=== PATIENT | male | born 1965 ===

== ENCOUNTER 2018-01-10 00:13 | Emergency (ER) | payer OTHER ==
[2018-01-10] MEDS ORDERED: NA CHLORIDE 0.9% 1,000 ML ONE (01:18)
[2018-01-10 02:06] LABS: Absolute Lymphocytes (CBC) 1.1 K/uL (0.7-4.9); Absolute Monocytes 0.5 K/uL (0.1-1.3); Eosinophils % 16.4 % (0-4.4); Hematocrit 40.4 % (39.6-49.0); Lymphocytes % 15.8 % (15.3-44.8); MCH 27.8 pg (27.0-35.0); MCV 85.7 fL (80-100); Monocytes % 7.2 % (3.3-12.3); RBC Red Blood Cell Count 4.71 M/uL (4.33-5.43)
[2018-01-10 02:17] LABS: Protime INR 1.03
[2018-01-10 02:20] LABS: Bicarbonate 29 mEq/L (21-31); Glucose Level 81 mg/dL (65-120); Potassium 4.1 mEq/L (3.6-5.0); Sodium Level 139 mEq/L (135-145)
[2018-01-10 02:26] LABS: ALT/SGPT 17 IU/L (10-60); AST/SGOT 24 IU/L (10-42); Albumin 3.9 g/dL (3.2-5.5); Alkaline Phosphatase 57 IU/L (42-121); BUN Blood Urea Nitrogen 19 mg/dL (6-20); Bilirubin Direct < 0.1 mg/dL (0-0.2); Bilirubin Total 0.6 mg/dL (0.3-1.2); CKMB Creatine Kinase MB 3.1 ng/ml (0.3-4.0); Creatine Phosphokinase 141 IU/L (22-269); Protein, Total 6.6 g/dL (6.0-8.3)
--- NOTE | 2018-01-10 03:00 | ER ---
Nurse's Notes [facility] Name: Hari Triplett Age: 52 yrs Sex: Male : 1965 Arrival Date: 01/10/2018 Time: 00:25 Bed 19 Private MD: Gustavo Moise R Diagnosis: Other chest pain-wall;Pleurisy Presentation: 01/10 00:41 Presenting complaint: Patient states: that he is having sharp pain and burning feeling fc to left breast next to nipple. Denies any shortness of breath, nausea or vomiting. Transition of care: patient was not received from another setting of care. Onset of symptoms was January 09, 2018 at 21:30. Initial Sepsis Screen: Does the patient meet any 2 criteria? No. Patient's initial sepsis screen is negative. Does the patient have a suspected source of infection? No. Patient's initial sepsis screen is negative. Care prior to arrival: None. 00:41 Method Of Arrival: Ambulatory fc 00:41 Acuity: SHELLI 4 fc Historical: - Allergies: 00:44 Codeine; fc 00:44 Aspirin; fc - Home Meds: 00:44 None [Active]; fc - PMHx: 00:44 G6PD deff.; hypoglycemia; High Cholesterol; fc - PSHx: 00:44 None; fc - Immunization history:: Last tetanus immunization: unknown. - Social history:: Smoking status: Patient/guardian denies using tobacco, Patient/guardian denies using alcohol. - Family history:: not pertinent. Screenin:39 Abuse screen: Denies threats or abuse. Denies injuries from another. Nutritional lk1 screening: No deficits noted. Tuberculosis screening: No symptoms or risk factors identified. Fall Risk None identified. Assessment: 01:15 General: Appears in no apparent distress. Behavior is calm, cooperative, appropriate lk1 for age. Pain: Complains of pain in left breast Pain currently is 3 out of 10 on a pain scale. Quality of pain is described as sharp. Neuro: Level of Consciousness is awake, alert, obeys commands, Oriented to person, place, time, situation. Neuro: Moves all extremities. Full function Gait is steady, Speech is normal, Facial symmetry appears normal. Cardiovascular: Heart tones S1 S2 present Capillary refill is brisk Patient's skin is warm and dry. Respiratory: Airway is patent Respiratory effort is even, unlabored, Respiratory pattern is regular, symmetrical, Breath sounds are clear bilaterally. GI: Abdomen is flat, non-distended. : No signs and/or symptoms were reported regarding the genitourinary system. EENT: No signs and/or symptoms were reported regarding the EENT system. Derm: No signs and/or symptoms reported regarding the dermatologic system. Musculoskeletal: No signs and/or symptoms reported regarding the musculoskeletal system. 02:15 Reassessment: Patient appears in no apparent distress at this time. Patient is alert, lp1 oriented x 3, equal unlabored respirations, skin warm/dry/pink. Patient denies pain at this time. Patient states feeling better. 03:18 Reassessment: Patient and/or family updated on plan of care and expected duration. Pain lp1 level reassessed. Patient is alert, oriented x 3, equal unlabored respirations, skin warm/dry/pink. Patient denies pain at this time. Vital Signs: 00:44 BP 110 / 72; Pulse 60; Resp 16; Temp 98.7(TE); Pulse Ox 98% on R/A; Weight 58.97 kg fc (R); Height 5 ft. 6 in. (167.64 cm) (R); Pain 3/10; 01:45 BP 134 / 87; Pulse 60; Resp 14; Pulse Ox 100% on R/A; Pain 0/10; lk1 02:30 BP 125 / 74; Pulse 60; Resp 18; Pulse Ox 100% on R/A; Pain 0/10; lp1 03:00 BP 119 / 70; Pulse 59; Resp 17; Pulse Ox 98% on R/A; Pain 0/10; lp1 00:44 Body Mass Index 20.98 (58.97 kg, 167.64 cm) ED Course: 00:25 Patient arrived in ED. do 00:42 Triage completed. fc 00:44 Gustavo Moise MD is Private Physician. fc 00:44 Arm band placed on Patient placed in an exam room, on a stretcher. fc 00:58 Oli Lu MD is Attending Physician. libia 01:14 Annabel Guzmán, LETY is Primary Nurse. lk1 01:19 Patient moved to radiology via wheelchair. kw 01:19 X-ray completed. Patient tolerated procedure well. kw 01:19 Patient moved back from radiology. kw 01:20 Chest Pa And Lat (2 Views) XRAY In Process Unspecified. EDMS 01:39 Patient has correct armband on for positive identification. Placed in gown. Bed in low lk1 position. Call light in reach. 01:39 Inserted saline lock: 22 gauge in right antecubital area, using aseptic technique. lk1 Blood collected. 03:00 Gustavo Moise MD is Referral Physician. libia 03:18 No provider procedures requiring assistance completed. IV discontinued, No lp1 redness/swelling at site. Pressure dressing applied. Administered Medications: 01:26 Drug: NS 0.9% 1000 ml Route: IV; Rate: 1 bolus; Site: right antecubital; lk1 02:30 Follow up: IV Status: Completed infusion; IV Intake: 1000ml lp1 Intake: 02:30 IV: 1000ml; Total: 1000ml. lp1 Outcome: 03:00 Discharge ordered by . libia 03:19 Discharged to home ambulatory. lp1 03:19 Condition: good 03:19 Discharge instructions given to patient, Instructed on discharge instructions, follow up and referral plans. Demonstrated understanding of instructions, follow-up care. 03:24 Patient left the ED. lp1 Signatures: Dispatcher [employer] EDOli Mendoza MD MD cha Chretien, Felicia, RN RN Seema Pereira Laura, RN RN lp1 Annabel Guzmán RN RN lk1 Venus Whitley do
--- NOTE | 2018-01-10 03:00 | EDPHYS ---
Physician Documentation [facility] Name: Hari Triplett Age: 52 yrs Sex: Male : 1965 Arrival Date: 01/10/2018 Time: 00:25 Bed 19 Private MD: Gustavo Moise R ED Physician Oli Lu HPI: 01/10 01:04 This 52 yrs old Unknown Male presents to ER via Ambulatory with complaints of L Breast libia Pain. 01:04 The patient or guardian reports chest pain that is located primarily in the anterior libia chest wall, left. Onset: just prior to arrival. The pain does not radiate. Associated signs and symptoms: The patient has no apparent associated signs or symptoms. The chest pain is described as sharp. Modifying factors: The symptoms are alleviated by nothing. the symptoms are aggravated by nothing. Severity of pain: At its worst the pain was mild moderate in the emergency department the pain has improved moderately. The patient has not experienced similar symptoms in the past. Historical: - Allergies: 00:44 Codeine; fc 00:44 Aspirin; fc - Home Meds: 00:44 None [Active]; fc - PMHx: 00:44 G6PD deff.; hypoglycemia; High Cholesterol; fc - PSHx: 00:44 None; fc - Immunization history:: Last tetanus immunization: unknown. - Social history:: Smoking status: Patient/guardian denies using tobacco, Patient/guardian denies using alcohol. - Family history:: not pertinent. ROS: 01:04 Constitutional: Negative for fever, chills, and weight loss, Eyes: Negative for injury, libia pain, redness, and discharge, ENT: Negative for injury, pain, and discharge, Neck: Negative for injury, pain, and swelling, Respiratory: Negative for shortness of breath, cough, wheezing, and pleuritic chest pain, Abdomen/GI: Negative for abdominal pain, nausea, vomiting, diarrhea, and constipation, Back: Negative for injury and pain, : Negative for injury, bleeding, discharge, and swelling, MS/Extremity: Negative for injury and deformity, Skin: Negative for injury, rash, and discoloration, Neuro: Negative for headache, weakness, numbness, tingling, and seizure, Psych: Negative for depression, anxiety, suicide ideation, homicidal ideation, and hallucinations, Allergy/Immunology: Negative for hives, rash, and allergies, Endocrine: Negative for neck swelling, polydipsia, polyuria, polyphagia, and marked weight changes, Hematologic/Lymphatic: Negative for swollen nodes, abnormal bleeding, and unusual bruising. :04 Cardiovascular: Positive for chest pain, of the left breast. Exam: :04 Constitutional: This is a well developed, well nourished patient who is awake, alert, libia and in no acute distress. Head/Face: Normocephalic, atraumatic. Eyes: Pupils equal round and reactive to light, extra-ocular motions intact. Lids and lashes normal. Conjunctiva and sclera are non-icteric and not injected. Cornea within normal limits. Periorbital areas with no swelling, redness, or edema. ENT: Nares patent. No nasal discharge, no septal abnormalities noted. Tympanic membranes are normal and external auditory canals are clear. Oropharynx with no redness, swelling, or masses, exudates, or evidence of obstruction, uvula midline. Mucous membranes moist. Neck: Trachea midline, no thyromegaly or masses palpated, and no cervical lymphadenopathy. Supple, full range of motion without nuchal rigidity, or vertebral point tenderness. No Meningismus. Chest/axilla: Normal chest wall appearance and motion. Nontender with no deformity. No lesions are appreciated. Cardiovascular: Regular rate and rhythm with a normal S1 and S2. No gallops, murmurs, or rubs. Normal PMI, no JVD. No pulse deficits. Respiratory: Lungs have equal breath sounds bilaterally, clear to auscultation and percussion. No rales, rhonchi or wheezes noted. No increased work of breathing, no retractions or nasal flaring. Abdomen/GI: Soft, non-tender, with normal bowel sounds. No distension or tympany. No guarding or rebound. No evidence of tenderness throughout. Back: No spinal tenderness. No costovertebral tenderness. Full range of motion. Male : Normal genitalia with no discharge or lesions. Skin: Warm, dry with normal turgor. Normal color with no rashes, no lesions, and no evidence of cellulitis. MS/ Extremity: Pulses equal, no cyanosis. Neurovascular intact. Full, normal range of motion. Neuro: Awake and alert, GCS 15, oriented to person, place, time, and situation. Cranial nerves II-XII grossly intact. Motor strength 5/5 in all extremities. Sensory grossly intact. Cerebellar exam normal. Normal gait. Psych: Awake, alert, with orientation to person, place and time. Behavior, mood, and affect are within normal limits. 01:07 Musculoskeletal/extremity: DVT Exam: No signs of deep vein thrombosis. no pain, no libia swelling, no tenderness, negative Homans' sign noted on exam, no appreciated bluish discoloration, no erythema, no increased warmth. Vital Signs: 00:44 BP 110 / 72; Pulse 60; Resp 16; Temp 98.7(TE); Pulse Ox 98% on R/A; Weight 58.97 kg fc (R); Height 5 ft. 6 in. (167.64 cm) (R); Pain 3/10; 01:45 BP 134 / 87; Pulse 60; Resp 14; Pulse Ox 100% on R/A; Pain 0/10; lk1 02:30 BP 125 / 74; Pulse 60; Resp 18; Pulse Ox 100% on R/A; Pain 0/10; lp1 03:00 BP 119 / 70; Pulse 59; Resp 17; Pulse Ox 98% on R/A; Pain 0/10; lp1 00:44 Body Mass Index 20.98 (58.97 kg, 167.64 cm) MDM: 00:59 Patient medically screened. [facility] 01:07 Data reviewed: vital signs, nurses notes, lab test result(s), EKG, radiologic studies, libia plain films. 01/10 01:03 Order name: Basic Metabolic Panel; Complete Time: 02:59 [facility] 01/10 01:03 Order name: BNP; Complete Time: 02:59 [facility] 01/10 01:03 Order name: CBC with Diff [facility] 01/10 01:03 Order name: Ckmb; Complete Time: 02:59 [facility] 01/10 01:03 Order name: CPK; Complete Time: 02:59 [facility] 01/10 01:03 Order name: LFT's; Complete Time: 02:59 [facility] 01/10 01:03 Order name: Magnesium; Complete Time: 02:59 [facility] 01/10 01:03 Order name: PT-INR; Complete Time: 02:23 [facility] 01/10 01:03 Order name: Ptt, Activated; Complete Time: 02:23 [facility] 01/10 01:03 Order name: Troponin (emerg Dept Use Only); Complete Time: 02:59 [facility] 01/10 01:03 Order name: Chest Pa And Lat (2 Views) XRAY [facility] 01/10 01:03 Order name: D-Dimer; Complete Time: 02:23 [facility] 01/10 01:36 Order name: Urine Dipstick--Ancillary (enter results) em1 01/10 02:07 Order name: Manual Differential EDTN 01/10 01:03 Order name: EKG; Complete Time: 01:04 [facility] 01/10 01:03 Order name: Cardiac monitoring; Complete Time: 01:36 [facility] 01/10 01:03 Order name: EKG - Nurse/Tech; Complete Time: 02:09 [facility] 01/10 01:03 Order name: IV Saline Lock; Complete Time: :36 [facility] 01/10 01:03 Order name: Labs collected and sent; Complete Time: 01:35 [facility] 01/10 01:03 Order name: O2 Per Protocol; Complete Time: 01:35 [facility] 01/10 01:03 Order name: O2 Sat Monitoring; Complete Time: 01:36 [facility] 01/10 01:03 Order name: Urine Dipstick-Ancillary (obtain specimen); Complete Time: 01:35 [facility] Administered Medications: 01:26 Drug: NS 0.9% 1000 ml Route: IV; Rate: 1 bolus; Site: right antecubital; lk1 02:30 Follow up: IV Status: Completed infusion; IV Intake: 1000ml lp1 Disposition: 01/10/18 03:00 Discharged to Home. Impression: Other chest pain - wall, Pleurisy. - Condition is Stable. - Discharge Instructions: Nonspecific Chest Pain, Chest Wall Pain, Pleurisy, Nonspecific Chest Pain, Vbor-am-Ltbu, Aspirin and Your Heart, Pleurisy, [id number]. - Medication Reconciliation Form, Thank You Letter, Antibiotic Education, Prescription Opioid Use form. - Follow up: Gustavo Moise; When: 2 - 3 days; Reason: Recheck today's complaints, Continuance of care, Re-evaluation by your physician. - Problem is new. - Symptoms have improved. Signatures: Dispatcher [employer] EDMS Oli Lu MD MD cha Chretien, Felicia RN Allyn Weber RN RN lp1 Annabel Guzmán RN RN lk1
[2018-01-10 03:06] LABS: Urine Blood NEGATIVE (NEG); Urine Glucose NEGATIVE (NEG); Urine Protein NEGATIVE (NEG); Urine pH 7.5 (5.0-7.0)
[2018-01-10 03:17] LABS: Blood Morphology Comment NOT SEEN (NOT SEEN); Platelet Estimate ADEQ
--- NOTE | 2018-01-10 08:06 | RAD REPORT ---
EXAM DESCRIPTION: James Pa And Lat (2 Views)01/10/2018 1:22 am CLINICAL HISTORY: Cough COMPARISON: None FINDINGS: Mild right suprahilar opacity seen. The remainder of the lungs appear clear of acute infi ltrate. The heart is normal size IMPRESSION: Mild right suprahilar opacity may represent confluence of ribs and vessels or a mild in filtrate. Follow up PA and lateral chest series would be helpful for re-evaluation
--- NOTE | 2018-01-10 16:27 | EKG ---
Test Date: 2018-01-10 Test Time: 01:52:39 Epic Anesthesia Analyst: ADITHYA MEASUREMENT RESULTS: Intervals: Rate: 52 SD: 128 QRSD: 88 QT: 454 QTc: 422 [place]: P: 7 SD: 128 QRS: 64 T: 41 INTERPRETIVE STATEMENTS: Sinus bradycardia Otherwise normal ECG No previous ECG available for comparison Electronically Signed On 01-10-18 16:23:47 CDT by Micheal Nelson
== END 2018-01-10 03:24 | disposition home or self-care (01) ==
LOC: ER 00:13
DX: R09.1 Pleurisy (principal); Z88.6 Allergy status to analgesic agent
CPT/HCPCS: 36415; 71046; 80048; 80076; 81003; 82550; 82553; 83735; 83880; 84484; 85025; 85379; 85610; 85730; 93005; 96360; 99284; J7030